=== PATIENT | female | born 1995 | race Caucasian/White ===

== ENCOUNTER → 2017-11-15 15:42 | Outpatient (CLI) | payer OTHER, SELFPAY | PROVIDERS: Family Provider Student in an Organized Health Care Education/Training Program; Visit Provider Otolaryngology Otolaryngology/Facial Plastic Surgery | DX: J03.90 Acute tonsillitis, unspecified (principal) | CPT/HCPCS: 87070; 87077 ==

== ENCOUNTER → 2019-02-01 12:37 | Outpatient (CLI) | payer OTHER, SELFPAY ==
--- NOTE | 2019-02-01 12:43 | ECHOD_ITS ---
Reason For Study: Palpitations Procedure This was a 2D Doppler, Color Flow transthoracic echocardiogram. Exam performed in department. Left Ventricle Normal LV size. Left ventricular systolic function is normal. The estimated ejection fraction is 60 %. Normal diastology for age. No regional wall motion abnormalities noted. Right Ventricle Normal RV size. Normal systolic function. Atria Normal left atrium. Normal right atrium. Mitral Valve Normal mitral valve. Tricuspid Valve Normal tricuspid valve. Aortic Valve Normal aortic valve. Trisinus/trileaflet aortic valve. Pulmonic Valve Normal pulmonic valve. Great Vessels Normal aortic root. The pulmonary artery is normal size. Normal inferior vena cava. Pericardium/Pleural No pericardial effusion. MMode/2D Measurements & Calculations LVIDd: 4.6 cm IVSd: 0.96 cm Ao root diam: 3.1 cm LVIDs: 3.2 cm LVPWd: 0.93 cm RVDd: 3.6 cm FS: 31.3 % LAV(MOD-bp): 61.2 ml LA A4 area: 18.5 cm2 LA dimension(2D): 4.0 cm LAV(MOD-bp) Indexed: 26.9 ml/m2 LAV(MOD-sp2): 69.1 ml LAV(MOD-sp4): 52.2 ml RA A4 area: 16.6 cm2 Time Measurements MV dec time: 0.37 sec Doppler Measurements & Calculations MV E max konrad: 54.0 cm/sec Lat Peak E' Konrad: 16.2 cm/sec Med Peak E' Konrad: 6.3 cm/sec MV A max konrad: 43.1 cm/sec E/E' lat: 3.3 E/E' med: 8.6 MV E/A: 1.3 Ao V2 max: 154.6 cm/sec LV V1 max: 116.7 cm/sec PA V2 max: 105.7 cm/sec Ao max P.6 mmHg LV V1 max P.5 mmHg PI end-d konrad: 112.0 cm/sec TR max konrad: 248.7 cm/sec TR max P.8 mmHg Interpretation Summary Normal LV size. Left ventricular systolic function is normal. The estimated ejection fraction is 60 %. Normal diastology for age. Structurally normal valves. Ordering Physician: Neetu Marcum Referring Physician: Neetu Marcum Performed By: Magaly Singh, HEVER, RVT
== END ==
PROVIDERS: Family Provider Student in an Organized Health Care Education/Training Program; PCP Student in an Organized Health Care Education/Training Program; Referring Provider Registered Nurse; Visit Provider Registered Nurse
DX: R00.2 Palpitations (principal)
CPT/HCPCS: 93306

== ENCOUNTER → 2019-02-04 10:35 | Outpatient (REF) | payer OTHER, SELFPAY | LOC: CVS 10:35 | PROVIDERS: Family Provider Student in an Organized Health Care Education/Training Program; PCP Student in an Organized Health Care Education/Training Program; Referring Provider Registered Nurse; Visit Provider Registered Nurse | DX: R00.2 Palpitations (principal) | CPT/HCPCS: 93270; 93271 ==

== ENCOUNTER 2019-05-19 18:55 | Inpatient (IN) | payer OTHER, SELFPAY ==
[2019-04-24 09:02] VITALS: BMI 38.4
[2019-05-19] MEDS: Lactated Ringers 1,000 ML 50 ML IV (19:40)
[2019-05-19 19:57] VITALS: BMI 40.9
[2019-05-19 20:11] LABS: Absolute Lymphocyte Count 1.43 X10^3/uL (0.83-4.51); Absolute Neutrophil Count 9.2 X10^3/uL (2.0-7.7); Basophil# 0.03 X10^3/uL; Basophil% 0.3 % (0-1); Eosinophil# 0.24 X10^3/uL; Hemoglobin 10.5 g/dL (12.0-15.0); Lymphocyte # 1.43 X10^3/ul (4.0); Lymphocyte % 12.1 % (19-41); Mean Corp Hgb Conc 31.8 g/dL (32-36); Mean Corpuscular Hgb 26.9 pg (27.0-32.0); Mean Corpuscular Volume 84.6 fL (81-99); Monocyte# 0.79 X10^3/uL; Monocyte% 6.7 % (0-10); NRBC Flagged by Analyzer 0 % (0-5); Neutrophil # 9.17 X10^3/uL (2.7-7.7); Neutrophil % 77.5 % (47-70); Platelet Count 167 K/mm3 (150-450); RBC Distribution Width SD 49.4 fl (35.1-43.9); White Blood Count 11.8 K/mm3 (4.4-11.0)
[2019-05-19] MEDS: miSOPROStol 25 MCG TABLET PO (20:45)
--- NOTE | 2019-05-19 20:51 | HP.PCM_ITS ---
- Problem List (1) 41 weeks gestation of Status: Acute (2) Primiparous Status: Acute (3) Positive GBS test Status: Acute History Date of Admission: 05/19/19 Final SALVADOR: 05/12/19 Gestational age: 41 Weeks and 0 Days History of this : This is a 23 year-old, G 1, P 0, at 41 weeks gestational age who presents for scheduled IOL for 41 wk gestation. Medical History: Medical History (Last Reviewed 04/24/19 @ 10:[address] Willie Mix MD) Exercise-induced asthma J45.990 Obesity E66.9 Allergies Penicillins [PCN] Allergy (Verified 05/19/19 20:00) Hives diphenhydramine [From Benadryl] Adverse Reaction (Verified 05/19/19 20:00) Hives sulfamethoxazole [From Bactrim] Adverse Reaction (Verified 05/19/19 20:00) Unknown trimethoprim [From Bactrim] Adverse Reaction (Verified 05/19/19 20:00) Unknown Home Medications: Home Medications albuterol sulfate 90 mcg/actuation aerosol inhaler 2 puff INHALATION Q6H PRN 04/23/19 prenat.vits,chary,[id number] 1 tab PO DAILY 04/23/19 Smoking Status: Never smoker Number of Fetus(es): 1 NST - FHR Rate Baby A NST Reactive:: Yes FHR Category:: Category I Uterine Activity:: Occasional ctx's History Past Pregnancies: Past Pregnancies Delivery Date Name GA/ Weeks Outcome Route Wt Sex Labor Length Anesthesia Delivery Location Provider FOB Labs: GBS positive, resistant to clinda Hgb 11.8 [id number] 1 hr GTT 131 Syphilis NR RI Hep B neg HIV NR O positive Ab screen neg GC/Ct neg UDS neg Expected Delivery Method: Spontaneous Vaginal Review of Systems Gynecological: Reports: - - No ctx, vb, lof. Good FM Physical Exam General: Alert, No apparent distress HEENT: Atraumatic Abdomen: Soft, Non Tender, Gravid Extremities:: No edema Neurological: Neuro grossly intact FABRIC SOURCER: Normal external genitalia Estimated gestational size: Appropriate for gestational size Presentation: Cephalic Cervix Dilation (cm): 1 Station: -3 Effacement (%): 50 Assessment/Plan All Active Problems (Last Reviewed 04/24/19 @ 10:[address] Wilile Mix MD) 41 weeks gestation of (Acute) Primiparous (Acute) Positive GBS test (Acute) 37 weeks gestation of (Acute) This is a 23 year-old, G 1, P 0, at 41 weeks gestational age who presents for scheduled IOL. - Admit for routine intrapartum care - Risks of an induction discussed in the office including but not limited to failed induction, need for , shoulder dystocia - Intracervical wilkerson placed and PO cytotec started. Will start pit once wilkerson out - GBS positive, resistant to clinda, Vanc for GBS prophylaxis - EFW 85% on 38 wk US. EFW < 4500 g and pelvis adequate - H/o pre-syncope in the : Cardio workup negative. Symptoms resolved after she stopped working - Epidural prn
[2019-05-19] MEDS: 0.9% Normal Saline Single 100 ML IV.SOLN. IY (21:15)
[2019-05-20] MEDS: miSOPROStol 25 MCG TABLET PO (00:37)
[2019-05-20] MEDS: 0.9% Saline Lock 10 ML Syringe IV ×2 (04:45→09:20)
[2019-05-20] MEDS: Oxytocin 30 units/NS 500 ml 30 UNITS/500 ML IV.SOLN IV (04:55)
--- NOTE | 2019-05-20 08:32 | PCM.PN.BLA ---
Progress Note S: Patient comfortable with ctxs O: cvx - 3.5/80/-3 AROM thin meconium fluid FSE & IUPC placed fhts 150 with mod variability, accels, mild variables tocos - Q2-4 minutes A&P: Continue pitocin induction
[2019-05-20] MEDS: fentaNYL 100 MCG/2 ML Ampul IV (09:19)
[2019-05-20] MEDS: Lactated Ringers 500 ML 999 ML IV ×2 (10:05→14:29)
[2019-05-20] MEDS: Amnioinfusion- 0.9% NS 1,000 ML IV.SOLN. 200 ML INTRA-UTER (10:40)
[2019-05-20] MEDS: fentaNYL-bupivacaine (epidural) 100 ML BAG EPIDURAL ×2 (11:07→16:31)
[2019-05-20] MEDS: Mag Hydrox/Al Hydrox/Simeth 30 ML UDC PO (15:04)
[2019-05-20] MEDS: Oxytocin 30 units/NS 500 ml 30 UNITS/500 ML IV.SOLN 334 UNITS IV (18:05)
--- NOTE | 2019-05-20 18:29 | OP.PCM_ITS ---
Vaginal Delivery Maternal Presentation: Medically Indicated Induction Method of Induction: Pitocin, Mathis Bulb, Amniotomy, Cytotec Medical Reason for Induction: Post term Amniotic Membrane Rupture Type: Artificial Amniotic Fluid Description: Lightly stained meconium Final SALVADOR: 05/12/19 Gestational age: 41 Weeks and 1 Days Date of Procedure: 05/20/19 Pre-Operative Diagnosis: Post-dates Post-Operative Diagnosis: Same Surgery/ Procedure Performed: Vacuum Assisted Vaginal Delivery Type of Anesthesia: Epidural Description of Procedure: Patient prepped & draped when C/C/+2. Pushed pushed well. FHT's decreased with pushing with marcie in the 40's-50's (but improved after the contraction). This had also occurred when patient had pushed earlier. Patient verbally consented for vacuum delivery. position had been previously assessed & confirmed adequate for vacuum delivery. Vacuum placed on head & position confirmed. With next maternal push and (1) pull of the vacuum good descent was noted. The vacuum pressure was decreased after the contraction & then pressure increased as next contraction started. With next maternal push (and contraction) and second pull of vacuum the head delivered. Vacuum re leased. head gently guided to allow delivery of anterior and posterior shoulders. No excess traction placed on head. Body delivered and vigorous placed on maternal abdomen. 3VC clamped and cut in delayed fashion. Placenta delivered with gentle traction. Good uterine tone obtained. Presentation: ROBERTO Placental Delivery Description: Expressed Placenta Disposition: [facility] Cord Vessel Description: 3 Vessels Cord Entanglement: Around neck x 1, loose Drain: Mathis to straight drain Estimated Blood Loss: 300ml Infant A gender: Female - Everleigh (1 minute): 8 (5 minute): 9 Episiotomy Description: None Laceration: 2nd degree - perineal - repaired with 3-0 vicryl Medications given after delivery: IV Pitocin Complications: None
[2019-05-20] MEDS: Acetaminophen 500 MG Tablet 1000 MG PO (21:53)
[2019-05-20 23:44] VITALS: BP 132/72; PULSE 93; RESP 16; TEMP 36.8
[2019-05-21 04:11] VITALS: BP 109/55; PULSE 81; RESP 16; TEMP 36.7
[2019-05-21] MEDS: Ibuprofen 600 MG Tablet PO (04:15)
[2019-05-21 08:10] VITALS: BP 123/69; PULSE 85; RESP 18; TEMP 36.8
--- NOTE | 2019-05-21 11:17 | PCM.PN.OB ---
Patient Problems: Active and Suspected Problems (Last Reviewed 04/24/19 @ 10:[address] Willie Mix MD) 41 weeks gestation of (Acute) Primiparous (Acute) Positive GBS test (Acute) Subjective: Doing well per patient and nursing staff. Ambulating and taking PO without difficulty. Voiding and passing flatus. without difficulty. No complaints. Lochia normal. No chest pain, SOB, or leg pain. - Physical Exam Vitals/I&O's: Vital Signs Temp Pulse Resp BP 98.2 F 85 18 123/69 H 05/21/19 08:10 05/21/19 08:10 05/21/19 08:10 05/21/19 08:10 Oxygen Delivery Method Room Air Weight: 277 lb 8.992 oz Body Mass Index (BMI) 40.9 Intake and Output for Last 24 Hours 05/19/19 05/20/19 05/21/19 23:59 23:59 23:59 Intake Total 8.33 / 8.33 6135.00 / 6135.00 Output Total 1100 / 1100 400 / 400 Balance 8.33 / 8.33 5035.00 / 5035.00 -400 / -400 General: Oriented x3, Cooperative HEENT: Atraumatic, Normocephalic Neck: Trachea Midline Lungs: Normal air movement, No rhonchi, No wheeze Cardiovascular: Regular rate, Regular Rhythm, No murmurs Abdomen: Bowel Sounds Present, Soft, Non Tender - Fundus firm 2 below U Extremities: No edema - Gianni's negative bilaterally Psych/Mental Status: Normal Affect, Appropriate Current Medications Acetaminophen (Tylenol) 1,000 mg PO Q8H PRN PRN PRN Reason: Pain Score 1-3/10 Last Admin: 05/20/19 21:53 Dose: 1,000 mg Documented by: Bisacodyl (Dulcolax) 10 mg RECTAL UD PRN PRN Reason: If no BM Dibucaine (Dibucaine) 1 applic TOPICAL TID PRN PRN; Protocol PRN Reason: Discomfort Hydrocortisone (Hytone) 1 applic TOPICAL TID PRN PRN; Protocol PRN Reason: Discomfort Ibuprofen (Motrin) 600 mg PO Q6H PRN PRN PRN Reason: Pain Score 1-3/10 Last Admin: 05/21/19 04:15 Dose: 600 mg Documented by: Methylergonovine Maleate (Methergine) 0.2 mg IM X1 PRN PRN Reason: Excess bleeding/uterine atony Ondansetron HCl (Zofran) 4 mg IV Q4H PRN PRN PRN Reason: Nausea Oxycodone HCl (Oxyir) 5 - 10 mg PO Q4H PRN PRN PRN Reason: Pain Score 4-10/10 Senna/Docusate Sodium (Senokot-S, Vianca-Colace) 1 - 2 tablet PO DAILY PRN PRN PRN Reason: Constipation Simethicone (Mylicon) 80 mg PO PCHS PRN PRN Reason: Indigestion/Stomach pain Sodium Chloride () 5 - 15 ml IV UD PRN PRN Reason: SALINE FLUSH Medical Necessity - Tobacco Use Smoking Status: Never smoker Assessment/Plan All Active Problems (Last Reviewed 04/24/19 @ 10:[address] Willie Mix MD) 41 weeks gestation of (Acute) Primiparous (Acute) Positive GBS test (Acute) 37 weeks gestation of (Acute) A:PPD #1 with Vacuum assisted vaginal delivery P: 1) Routine care. support 2) Planning D/C home tomorrow 3) Vitals stable
[2019-05-21 12:05] VITALS: BP 130/77; PULSE 82; RESP 16; TEMP 36.6
[2019-05-21] MEDS: Acetaminophen 500 MG Tablet 1000 MG PO (14:32)
[2019-05-21 16:05] VITALS: BP 135/98; PULSE 92; RESP 16; TEMP 36.8
[2019-05-21 19:45] VITALS: BP 130/85; PULSE 92; RESP 18; TEMP 36.5
[2019-05-22] MEDS: Acetaminophen 500 MG Tablet 1000 MG PO (00:09)
[2019-05-22 03:20] VITALS: BP 125/80; PULSE 71; RESP 18; TEMP 36.3
--- NOTE | 2019-05-22 08:06 | PCM.PN.OB ---
Patient Problems: Active and Suspected Problems (Last Reviewed 04/24/19 @ 10:[address] Willie Mix MD) 41 weeks gestation of (Acute) Primiparous (Acute) Positive GBS test (Acute) Subjective: Seen at bedside, doing well. Patient reports good pain control. Mild lochia. Breast-feeding going well. Voiding without difficulty. - Physical Exam Vitals/I&O's: Vital Signs Temp Pulse Resp BP 97.4 F L 71 18 125/80 H 05/22/19 03:20 05/22/19 03:20 05/22/19 03:20 05/22/19 03:20 Oxygen Delivery Method Room Air Weight: 125.9 kg Body Mass Index (BMI) 40.9 Intake and Output for Last 24 Hours 05/20/19 05/21/19 05/22/19 23:59 23:59 23:59 Intake Total 6135.00 / 6135.00 Output Total 1100 / 1100 400 / 400 Balance 5035.00 / 5035.00 -400 / -400 General: Alert, Oriented x3 Abdomen: Soft, Non Tender Extremities: No Calf Tenderness Neurological: Cranial nerves II-XII grossly intact Current Medications Acetaminophen (Tylenol) 1,000 mg PO Q8H PRN PRN PRN Reason: Pain Score 1-3/10 Last Admin: 05/22/19 00:09 Dose: 1,000 mg Documented by: Bisacodyl (Dulcolax) 10 mg RECTAL UD PRN PRN Reason: If no BM Dibucaine (Dibucaine) 1 applic TOPICAL TID PRN PRN; Protocol PRN Reason: Discomfort Hydrocortisone (Hytone) 1 applic TOPICAL TID PRN PRN; Protocol PRN Reason: Discomfort Ibuprofen (Motrin) 600 mg PO Q6H PRN PRN PRN Reason: Pain Score 1-3/10 Last Admin: 05/21/19 04:15 Dose: 600 mg Documented by: Methylergonovine Maleate (Methergine) 0.2 mg IM X1 PRN PRN Reason: Excess bleeding/uterine atony Ondansetron HCl (Zofran) 4 mg IV Q4H PRN PRN PRN Reason: Nausea Oxycodone HCl (Oxyir) 5 - 10 mg PO Q4H PRN PRN PRN Reason: Pain Score 4-10/10 Senna/Docusate Sodium (Senokot-S, Vianca-Colace) 1 - 2 tablet PO DAILY PRN PRN PRN Reason: Constipation Simethicone (Mylicon) 80 mg PO PCHS PRN PRN Reason: Indigestion/Stomach pain Sodium Chloride () 5 - 15 ml IV UD PRN PRN Reason: SALINE FLUSH Medical Necessity - Tobacco Use Smoking Status: Never smoker Assessment/Plan All Active Problems (Last Reviewed 04/24/19 @ 10:[address] Willie Mix MD) 41 weeks gestation of (Acute) Primiparous (Acute) Positive GBS test (Acute) 37 weeks gestation of (Acute) day #2, doing well routine care pain mgmt dc home
--- NOTE | 2019-05-22 08:10 | DCINST_ITS ---
Discharge Diet: No Restrictions Discharge Activity: Return to Normal Activity, May not drive while taking narcotic pain medications., May Shower May resume sexual activity in: 4-6 weeks Additional Activity Instructions:: Nothing in the vagina for 4-6 weeks. You may return to work/school in 6 weeks. Call your doctor if your incision/area has: Continuous Slow Oozing, Sudden Increased Bleeding, Increased Pain/ Swelling, Increased Redness, Foul Smelling Discharge Additional Instructions: If you experience any of the following, contact your healthcare provider. * Bleeding that soaks a pad every hour for 2 hours * Fever 100.4 or higher * Unrelieved incision or abdominal pain * Swelling, redness, discharge or bleeding from your incision or episiotomy site * Your incision begins to separate * Problems urinating (including inability to urinate or burning while urinating). * Visual changes * Severe headache * Flu-like symptoms * Pain or redness in one of both of your breasts * Pain, warmth, tenderness or swelling in your legs, especially the calf area * Frequent nausea and vomiting * Symptoms of depression or anxiety If you experience any of the following, call 911 or go to the nearest Emergency Room. * Chest pain * Problems breathing * Seizure activity * Partial or complete paralysis of a body part, slurred speech, weakness or drooping of the face, or a sudden inability to walk or hold your balance Allergies/Adverse Reactions: Allergies Penicillins [PCN] Allergy (Verified 05/19/19 20:00) Hives diphenhydramine [From Benadryl] Adverse Reaction (Verified 05/19/19 20:00) Hives sulfamethoxazole [From Bactrim] Adverse Reaction (Verified 05/19/19 20:00) Unknown trimethoprim [From Bactrim] Adverse Reaction (Verified 05/19/19 20:00) Unknown Medications to take at Discharge albuterol sulfate 90 mcg/actuation aerosol inhaler 2 puff INHALATION Q6H PRN 04/23/19 prenat.vits,chary,[id number] 1 tab PO DAILY 04/23/19 Ibuprofen [Motrin] 600 mg PO Q6H PRN PRN #30 tab 05/22/19 The following prescriptions were given: Ibuprofen [Motrin] 600 mg PO Q6H PRN PRN #30 tab PRN Reason: Pain Score 1-3/10 Transmission Status: Pending to [id number] When: Call to make an appointment with your doctor in 6 weeks. If you had elevated Blood Pressure or 4th degree laceration you will need to be seen in 2 weeks. Primary Care Physician: Cory Gould DO [Primary Care Provider] - Test Results: Test results from this visit will be discussed in further detail at your follow- up appointment, if applicable.
[2019-05-22 08:59] VITALS: BP 129/76; PULSE 92; RESP 16; TEMP 36.8
== END 2019-05-22 12:45 | disposition home or self-care (01) | DRG 807 ==
PROVIDERS: Admitting Provider Obstetrics & Gynecology; PCP Student in an Organized Health Care Education/Training Program; Visit Provider Obstetrics & Gynecology
DX: O76 Abnormality in fetal heart rate and rhythm complicating labor and delivery (principal); Z37.0 Single live birth; O48.0 Post-term pregnancy; Z3A.41 41 weeks gestation of pregnancy; O99.824 Streptococcus B carrier state complicating childbirth; O99.214 Obesity complicating childbirth; E66.9 Obesity, unspecified; Z71.3 Dietary counseling and surveillance; O77.0 Labor and delivery complicated by meconium in amniotic fluid; O69.81X0 Labor and delivery complicated by cord around neck, without compression, not applicable or unspecified; O70.1 Second degree perineal laceration during delivery
CPT/HCPCS: 59025; 59050; 85025; 86850; 86900; 86901; 99218; J7030; J7040; J7120; A4216; G0378